=== PATIENT | male | born 1935 | race Caucasian/White ===

== ENCOUNTER 2020-10-06 17:31 | Emergency (ER) | payer MEDICARE, SELFPAY ==
--- NOTE | ~2020-10-06 | XR_ITS ---
EXAMINATION: XR shoulder LT min 2V INDICATION: Left shoulder pain TECHNIQUE: Four views of the left shoulder are submitted. COMPARISON: 10/13/2013 FINDINGS: There is chronic deformity of the left proximal humerus, consistent with prior fracture. No acute fracture is identified. 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 Moderate to severe cervical spondylosis is noted. IMPRESSION: 1. Fracture deformity of the proximal left humerus without acute osseous abnormality. Reviewed, dictated and finalized at location A. IMPRESSION: 1. Fracture deformity of the proximal left humerus without acute osseous abnorm ality.
--- NOTE | 2020-10-06 17:32 | ED.GENADULT ---
HPI - General Adult General Chief complaint: Neck Pain/Injury Stated complaint: NECK PAIN Time Seen by Provider: 10/06/20 17:31 Source: patient Mode of arrival: ambulatory Limitations: no limitations History of Present Illness HPI narrative: 84-year-old male patient presents to the [facility] with complaints of left shoulder pain that radiates up to the lateral side of the left side of the neck. Patient states he injured his shoulder about 10 years ago when he fell off of his house. Patient states that he had multiple broken bones at that time and was told by the doctor at that time he might develop arthritis. Patient states is been hurting him for about 3 days now today is gotten extremely worse to the point where he is having trouble raising his left arm above his shoulder. Denies any new injury or trauma that he is aware of. Patient states he does sleep on 2 pillows when he sleeps at night. Patient states he took 1 extra strength Tylenol this morning and 1 extra strength Tylenol this afternoon which is all he is taking for pain. Related Data Home Medications Medication Instructions Recorded Confirmed carvedilol 6.25 mg PO DAILY 10/06/20 10/06/20 Allergies Allergy/AdvReac Type Severity Reaction Status Date / Time rivaroxaban Allergy Unknown Other Verified 10/06/20 17:48 Review of Systems Review of Systems: Narrative: CONSTITUTIONAL: Denies fever, chills, or sweats. EYES: Denies visual changes, redness, or discharge. ENT: Denies rhinorrhea, congestion, sore throat, or otalgia. CARDIOVASCULAR: Denies chest pain, palpitations, or edema. RESPIRATORY: Denies cough or dyspnea. GASTROINTESTINAL: Denies abdominal pain, nausea, vomiting, or diarrhea. GENITOURINARY: Denies dysuria or hematuria. SKIN: Denies rash or itching. MUSCULOSKELETAL: Denies back pain, joint pain, or myalgia. Positive left shoulder pain x3 days NEUROLOGIC: Denies headache, numbness, or weakness. PSYCHIATRIC: Denies anxiety or depression. [facility] Past Medical History Medical History (Updated 10/06/20 @ 17:59 by KELLEE Johnson) A-fib Broken shoulder Colon cancer Metal bone fixation hardware in place Pelvis fracture Stomach tumor (benign) Surgical History Surgical History History of colon resection Family History Family History Mother Carcinoma of colon Social History Social History Smoking status: Former smoker Second hand tobacco smoke exposure: No Smoking end date: 06/29/76 Alcohol intake: current Substance use: never Substance use type: does not use Gender identity (if verbalized by the patient): Male Comments At the time of my signature I agree with nursing past medical history, surgical, social, and family history. There is no relevant family history pertinent to the presenting complaint. Exam Narrative: Exam Narrative: GENERAL: Well-appearing, well-nourished, and in no acute distress. HEAD: Normocephalic, atraumatic. EYES: PERRLA and EOMI. ENT: Nares clear, no rhinorrhea or epistaxis. Mucous membranes moist. NECK: Supple. No lymphadenopathy CHEST: Clear to auscultation. No respiratory distress. HEART: Regular rate and rhythm. No murmur heard. Normal peripheral pulses. ABDOMEN: Soft, nontender, nondistended, normal active bowel sounds. EXTREMITIES: The L shoulder is without obvious asymmetry or deformity when compared to the R shoulder. No surface trauma, ecchymosis, crepitus. No bony deformity or prominence of the humeral head No erythema, warmth, swelling. no tenderness to palpation to clavicle, A to C joint, acromion, tenderness noted along the muscles of the scapula no tenderness of the humeral head. No tenderness to palpation of the bicipital groove or soft tissues. No tenderness to palpation of the muscles of the sterncleidomastoid, pectorals, bicep
[2020-10-06 17:35] VITALS: BP 147/91; PULSE 80; RESP 24; TEMP 37.2; O2SAT 100
[2020-10-06] MEDS: ACETAMINOPHEN 500 MG TABLET 1000 MG PO (17:55)
== END 2020-10-06 18:33 | disposition home or self-care (01) ==
PROVIDERS: Emergency Provider Nurse Practitioner Family
DX: G24.3 Spasmodic torticollis (principal); Z87.891 Personal history of nicotine dependence; I48.91 Unspecified atrial fibrillation; Z85.038 Personal history of other malignant neoplasm of large intestine
CPT/HCPCS: 73030; 99213; A9270; G0463

== ENCOUNTER 2023-03-13 09:01 | Outpatient (CLI) | payer MEDICARE, SELFPAY ==
[2023-03-13 10:24] LABS: INR 2.8; Prothrombin Time 31.9 Seconds (11.1-14.7)
== END 2023-03-13 09:02 | disposition home or self-care (01) ==
PROVIDERS: PCP Family Medicine; Visit Provider Internal Medicine Cardiovascular Disease
DX: I48.91 Unspecified atrial fibrillation (principal)
CPT/HCPCS: 36415; 85610

== ENCOUNTER 2023-04-03 07:11 | Outpatient (RCR) | payer MEDICARE, SELFPAY ==
[2023-03-20 08:34] LABS: INR 3.1; Prothrombin Time 34.4 Seconds (11.1-14.7)
[2023-03-27 08:46] LABS: INR 2.6
[2023-04-03 07:39] LABS: INR 2.7; Prothrombin Time 31.3 Seconds (11.1-14.7)
== END 2023-06-18 23:59 | disposition home or self-care (01) ==
LOC: ANHLAB 07:11
PROVIDERS: PCP Family Medicine; Visit Provider Internal Medicine Cardiovascular Disease
DX: I48.91 Unspecified atrial fibrillation (principal)
CPT/HCPCS: 36415; 85610

== ENCOUNTER 2023-04-29 01:56 | Day surgery (SDC) | payer MEDICARE, SELFPAY ==
[2023-04-20 14:09] VITALS: BMI 22.9
[2023-04-29 13:08] VITALS: BMI 22.3
--- NOTE | 2023-04-29 13:12 | WPDANESEPPF ---
Anes - Initial Pre Proc Eval Procedure: Operation Date: 04/29/23 14:15 Proposed Procedures p Esophagogastroduodenoscopy & Colonoscopy - Niko De Jesus MD Date/Time: 04/29/23 13:12 Surgeon: Niko De Jesus MD Pre Op Diagnosis: melena Patient Data Age: 87 Gender: M Height: 1.88 m Weight: 78.9 kg Allergies Allergy/AdvReac Type Severity Reaction Status Date / Time rivaroxaban AdvReac Intermediate GI bleed Verified 04/29/23 13:06 Home Medications Medication Instructions Recorded Confirmed Type simvastatin 10 mg tablet 10 mg PO DAILY #90 tabs 01/19/23 04/29/23 Rx metoprolol tartrate 25 mg tablet 25 mg PO BID #180 tabs 02/04/23 04/20/23 Rx Patient hx anesthesia problems: none Family hx anesthesia problems: none Results Review: All pre-operative results and documents have been reviewed as part of the pre-operative evaluation. [facility] Past Medical History Medical History (Updated 04/16/23 @ 10:50 by Gillian Ma APN-Renate) A-fib BMI 25.0-25.9,adult Broken shoulder Colon cancer Dr. Landry Family hx of colon cancer H/O fracture of humerus Metal bone fixation hardware in place Pelvis fracture Stomach tumor (benign) Surgical History Surgical History History of colon resection Family History Family History Mother Carcinoma of colon Father Sibling Carcinoma of colon Social History Social History (Updated 04/16/23 @ 09:55 by BRITTANI Cerda) Smoking packs per day: 1 Smoking cigarettes per day: 20.0 Years smoked: 29 Smoking pack-years: 29.00 Smoking status: Former smoker Tobacco type: cigarettes Second hand tobacco smoke exposure: No Smoking end date: 06/29/76 Alcohol intake: never Alcohol use details: Occasional beer but not anymore. Substance use: never Substance use type: does not use Lack of Transportation: No Lack of Food: Never True Current Housing: I Have Housing Concerned About Future Housing: No Difficulty Paying Gas/Electric Bills: No Difficulty Paying for Meds: No Currently Unemployed: No Education: High School Diploma/GED Difficulty w/ Childcare or Family Care: No Living arrangements: with family Occupation/Education: retired Additional occupation/education comments: [employer] Gender identity (if verbalized by the patient): Male Sexual Orientation (if Verbalized by the Patient): Straight or Heterosexual Spiritual care concerns: No Anes - Eval Final PreProcedure Day of Procedure 04/29/23 13:12 Patient weight: normal Heart: irregular rhythm Lungs: clear to auscultation Airway: Mallampati scale class III Neurological: alert and oriented Last oral intake: >/= 8 hours ASA classification: III Emergent: no Anesthetic plan: proceed Anesthesia type and monitoring: general GIVS and standard monitoring Results Review: All pre-operative results and documents have been reviewed as part of the pre-operative evaluation. Informed Consent: The patient's anesthetic plan and its attendant risks and benefits were discussed with the patient/family/POA. Questions were solicited and answers provided to the satisfaction of the patient/family/POA.
[2023-04-29 13:13] VITALS: BP 120/82; PULSE 85; RESP 18; TEMP 36.4; O2SAT 93
[2023-04-29] MEDS: LACTATED RINGERS 1,000 ML 150 ML IV CONT (13:14)
--- NOTE | 2023-04-29 13:39 | WPDHPUPDATE1 ---
History and Physical Update Update Date/Time: 04/29/23 13:39 History and Physical has been reviewed, including an updated exam of the patient. There are NO changes in the patient's condition. Risks, benefits, and alternatives have been discussed and questions answered. Patient agrees to proceed with procedure.
--- NOTE | 2023-04-29 13:50 | SUR.OPER ---
EGD: [id number] COLON: Start 1354
[2023-04-29 14:06] VITALS: BP 99/68; PULSE 86; RESP 20; O2SAT 98
[2023-04-29 14:16] VITALS: BP 115/83; PULSE 90; RESP 20; O2SAT 100
[2023-04-29 14:26] VITALS: BP 128/81; PULSE 88; RESP 20; O2SAT 100
== END 2023-04-29 14:41 | disposition home or self-care (01) ==
PROVIDERS: PCP Family Medicine; Visit Provider Internal Medicine Gastroenterology
PROC: 0DJ08ZZ Inspection of Upper Intestinal Tract, Via Natural or Artificial Opening Endoscopic (ICD-10-PCS; CPT 43235; principal; 2023-04-29 14:15)
DX: K92.1 Melena (principal); K57.30 Diverticulosis of large intestine without perforation or abscess without bleeding; K63.5 Polyp of colon; K64.8 Other hemorrhoids; K29.50 Unspecified chronic gastritis without bleeding; K29.80 Duodenitis without bleeding; Z98.0 Intestinal bypass and anastomosis status; Z90.49 Acquired absence of other specified parts of digestive tract; Z85.038 Personal history of other malignant neoplasm of large intestine; I48.91 Unspecified atrial fibrillation; G47.30 Sleep apnea, unspecified; Z80.0 Family history of malignant neoplasm of digestive organs; Z87.891 Personal history of nicotine dependence; Z79.01 Long term (current) use of anticoagulants
CPT/HCPCS: 43239; 45380; 87081; 88305; J2001; J2704; J7120

== ENCOUNTER 2023-09-09 07:20 | Outpatient (CLI) | payer MEDICARE, SELFPAY ==
[2023-09-09 07:55] LABS: Basophils Percent Auto 0.3 % (0.2-1.2); Eosinophils Absolute Auto 0.1 K/mm3 (0-0.3); Eosinophils Percent Auto 2.1 % (0-4.4); Hematocrit 44.7 % (42.0-52.0); Hemoglobin 14.5 g/dL (14.0-18.0); Immature Granulocyte Absolute 0.02 K/mm3 (0.00-0.031); Immature Granulocyte Percent A 0.3 % (0-0.5); Lymphocytes Absolute Auto 1.81 K/mm3 (0.9-3.2); Lymphocytes Percent Auto 29.2 % (18.3-44.2); Mean Corpuscular HGB Conc 32.4 g/dl (32-36); Mean Corpuscular Hemoglobin 29.3 pg (26-34); Mean Corpuscular Volume 90.3 fl (80-100); Mean Platelet Volume 10.2 fl (7.4-10.4); Monocytes Absolute Auto 0.5 K/mm3 (0.1-0.6); Monocytes Percent Auto 8.7 % (2.6-8.5); Neutrophils Absolute Auto 3.7 K/mm3 (1.3-6.7); Neutrophils Percent Auto 59.4 % (45.5-73.1); Platelet Count Result 256 k/mm3 (150-375); Red Blood Count 4.95 M/mm3 (4.6-6.20); Red Cell Distribution Width 13.4 % (11.5-14.5); White Blood Count 6.2 K/mm3 (4.5-10.0)
[2023-09-09 08:07] LABS: Alanine Aminotransferase 25 U/L (6-50); Albumin Level 4.3 g/dL (3.5-5.1); Alkaline Phosphatase 64 U/L (38-126); Anion Gap 6 mmol/L (8-16); Aspartate Amino Transferase 35 U/L (17-59); Bilirubin,Total 1.2 mg/dL (0.2-1.3); Blood Urea Nitrogen 18 mg/dL (9-20); Calcium 9.5 mg/dL (8.4-10.2); Carbon Dioxide 27 mmol/L (22-30); Chloride 106 mmol/L (98-107); Cholesterol 173 mg/dL (0-200); Estimated Glomerular Filt Rate > 60; Glucose 122 mg/dL (65-110); HDL Direct 69 mg/dL; Sodium 139 mmol/L (137-145); Triglycerides 105 mg/dL (<150)
[2023-09-09 08:18] LABS: LDL Cholesterol Direct 83 mg/dL
== END 2023-09-09 07:21 | disposition home or self-care (01) ==
LOC: ANHLAB 07:21
PROVIDERS: PCP Family Medicine; Visit Provider Family Medicine
DX: E78.2 Mixed hyperlipidemia (principal); R53.83 Other fatigue
CPT/HCPCS: 36415; 80053; 80061; 85025

== ENCOUNTER 2024-07-01 08:07 | Emergency (ER) | payer MEDICARE, SELFPAY ==
--- NOTE | ~2024-07-01 | XR_ITS ---
EXAMINATION: XR chest 2V DATE: 07/01/2024 08:37 INDICATION: Cough and shortness of breath. TECHNIQUE: Frontal and lateral views of the chest were obtained. COMPARISON: Chest 2 views 09/11/2018, CT abdomen and pelvis 07/23/2017 FINDINGS: There is mild scarring at the lung apices. No pleural effusion or pneumothorax. The heart s ize is normal. IMPRESSION: 1. Stable mild scarring at the lung apices. Reviewed, dictated and finalized at location A. LOADER
[2024-07-01 08:17] VITALS: BP 126/85; PULSE 100; RESP 20; TEMP 36.5; O2SAT 99
--- NOTE | 2024-07-01 08:18 | ED.URI ---
HPI - URI/Sore Throat General Chief Complaint: Upper Respiratory Infection Stated Complaint: cold symptoms Time Seen by Provider: 07/01/24 08:18 Source: patient Mode of arrival: ambulatory Limitations: no limitations History of Present Illness HPI Narrative: 88-year-old male presents with complaint cough, chest congestion for 4 days. Afebrile. Reports some mild shortness of breath with exertion. 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 Patient states ?infection has moved into my lungs ?. Patient is well-appearing, no respiratory distress. All systems reviewed and negative except as noted above. Related Data Allergies Allergy/AdvReac Type Severity Reaction Status Date / Time rivaroxaban AdvReac Intermediate GI bleed Verified 07/01/24 08:15 Review of Systems Review of Systems: CONSTITUTIONAL: Denies fever, chills, or sweats. Reports fatigue. EYES: Denies visual changes, redness, or discharge. ENT: Reports rhinorrhea, congestion. Denies sore throat, or otalgia. CARDIOVASCULAR: Denies chest pain, palpitations, or edema. RESPIRATORY: Reports cough and dyspnea with exertion. GASTROINTESTINAL: Denies abdominal pain, nausea, vomiting, or diarrhea. GENITOURINARY: Denies dysuria or hematuria. SKIN: Denies rash or itching. MUSCULOSKELETAL: Denies back pain, joint pain, or myalgia. NEUROLOGIC: Denies headache, numbness, or weakness. PSYCHIATRIC: Denies anxiety or depression. All other systems reviewed are negative, except as documented in HPI. [facility] Past Medical History Medical History A-fib BMI 25.0-25.9,adult Broken shoulder Colon cancer Dr. Landry Family hx of colon cancer H/O fracture of humerus Metal bone fixation hardware in place Pelvis fracture Stomach tumor (benign) Surgical History Surgical History History of colon resection Family History Family History Mother Carcinoma of colon Father Sibling Carcinoma of colon Social History Social History Smoking packs per day: 1 Smoking cigarettes per day: 20.0 Years smoked: 29 Smoking pack-years: 29.00 Smoking status: Former smoker Tobacco type: cigarettes Second hand tobacco smoke exposure: No Smoking end date: 06/29/76 Alcohol intake: never Alcohol use details: Occasional beer but not anymore. Substance use: never Substance use type: does not use Lack of Transportation: No Lack of Food: Never True Current Housing: I Have Housing Concerned About Future Housing: No Difficulty Paying Gas/Electric Bills: No Difficulty Paying for Meds: No Currently Unemployed: No Education: High School Diploma/GED Difficulty w/ Childcare or Family Care: No Living arrangements: with family Occupation/Education: retired Additional occupation/education comments: [employer] Gender identity (if verbalized by the patient): Male Sexual Orientation (if Verbalized by the Patient): Straight or Heterosexual Spiritual care concerns: No Comments At time of signature, agree with nursing past medical, surgical, social and family history. There is no relevant family history pertinent to the presenting complaint. Exam Narrative: GENERAL: This is a well-nourished, well-developed patient, in no apparent distress. HEAD: normocephalic, atraumatic. EYES: PERRL. Sclera clear/white. Vision is grossly intact. EARS: External ears normal, auditory canals clear and without drainage, TMs normal without perforation. Hearing grossly intact. NOSE: External nose normal with mild congestion, clear nasal drainage THROAT: Mucous membranes moist, posterior pharynx clear. NECK: Neck supple, non-tender without lymphadenopathy, masses or thyromegaly. CARDIOVASCULAR: Regular rate and rhythm without murmurs, gallops, or rubs. RESPIRATORY: Clear to auscultation. Breath sounds equal bilaterally. No wheezes, rales, or rhonchi. SKIN: warm, Dry, intact with no suspicious lesions or rash, good texture and turgor. NEURO: awake, alert, and oriented to person, place and time. There were no obvious focal neurologic abnormalities. EXTREMITIES: No joint tenderness, effusion, or edema noted. Course Course Level of Care: Express Care Visit Vital Signs Vital signs: Vital Signs Temperature 36.5 C 07/01/24 08:17 Pulse Rate 100 07/01/24 08:17 Respiratory Rate 20 07/01/24 08:17 Blood Pressure 126/85 07/01/24 08:17 Pulse Oximetry 99 07/01/24 08:17 Temperature 36.5 C 07/01/24 08:17 Pulse Rate 100 07/01/24 08:17 Respiratory Rate 20 07/01/24 08:17 Blood Pressure 126/85 07/01/24 08:17 Pulse Oximetry 99 07/01/24 08:17 Reviewed MDM - URI/Sore Throat MDM Narrative Medical decision making narrative: Patient's chest x-ray negative for pneumonia. Patient positive for COVID-19. Discussed results with patient. Oxygen saturation 99% room air. Patient is well-appearing, no respiratory distress. Will discharge with antiviral. Recommend follow-up with primary care physician as needed. Patient is aware of diagnosis, understands and agrees to treatment plan. Anticipatory guidance given. Patient agrees to follow-up as directed and is aware of reasons to seek care at the emergency department. Portions of this record may have been created with voice recognition software Differential Diagnosis Differential diagnosis: Likely upper respiratory infection, sinusitis, viral infection, influenza and other (COVID, pneumonia) Lab Data Labs: Lab Results 07/01/24 Range/Units 08:32 POC Influenza A Ag Negative (Negative) POC Influenza B Ag Negative (Negative) POC SARS CoV-2 Ag Positive (Negative) Imaging Data My impression: Agree with radiologist Radiologist's impression: EXAMINATION: XR chest 2V DATE: 07/01/2024 08:37 INDICATION: Cough and shortness of breath. TECHNIQUE: Frontal and lateral views of the chest were obtained. COMPARISON: Chest 2 views 09/11/2018, CT abdomen and pelvis 07/23/2017 FINDINGS: There is mild scarring at the lung apices. No pleural effusion or pneumothorax. The heart size is normal. IMPRESSION: 1. Stable mild scarring at the lung apices. Discharge Plan Discharge Clinical Impression: COVID-19 Patient Disposition: Home, Self-Care Condition: Stable Instructions: COVID-19 (Coronavirus Disease 2019) (ED) Additional Instructions: Your covid test was positive today. Your chest x-ray was negative for pneumonia. Take medications as prescribed. Take tylenol every 6 to 8 hours as needed for pain/fever. Drink plenty of water and rest. Go to the ER for any worsening of symptoms. Patient Language: Turkish Prescriptions: New Lagevrio (EUA) 200 mg capsule 800 mg PO Q12H 5 Days Qty: 40 0RF benzonatate 200 mg capsule 200 mg PO TID PRN (Reason: cough) Qty: 20 0RF No Action triamcinolone acetonide 0.1 % cream 1 applic topical BID PRN (Reason: rash of legs) Qty: 80 0RF metoprolol tartrate 25 mg tablet 25 mg PO BID Qty: 180 1RF simvastatin 10 mg tablet 10 mg PO DAILY Qty: 90 3RF Follow-up/Referrals: Adry Willard MD [Primary Care Provider] - Time of Disposition: 08:51
[2024-07-01 08:34] LABS: EDCOVIDSCREEN Positive (Negative); EDINFLUASCREEN Negative (Negative); EDINFLUBSCREEN Negative (Negative)
== END 2024-07-01 08:56 | disposition home or self-care (01) ==
PROVIDERS: Emergency Provider Nurse Practitioner Family; PCP Family Medicine
DX: U07.1 COVID-19 (principal); I48.91 Unspecified atrial fibrillation; Z85.038 Personal history of other malignant neoplasm of large intestine; Z90.49 Acquired absence of other specified parts of digestive tract; Z87.891 Personal history of nicotine dependence
CPT/HCPCS: 71046; 87426; 87804; 99213; G0463